=== PATIENT | female | born 1985 | race Caucasian/White ===

== ENCOUNTER → 2016-12-06 | Outpatient (CLI) | payer BC ==
[~2016-12-06] MED LIST: PRENTAB26 PO
[2016-12-06 12:42] LABS: BASO % 0.3 %; BASO ABS # 0.02 K/uL (0-0.2); COMPLETE YES; EOS % 2.1 %; HEMATOCRIT 40.8 % (37-47); IG% 0.3 %; LYMPH % 36.7 %; LYMPH ABS # 2.86 K/uL (1.2-3.4); MEAN CELL VOLUME 82.4 fL (80-100); MEAN CORPUSCULAR HEMOGLOBIN 28.1 pg (25-34); MEAN CORPUSCULAR HGB CONC 34.1 g/dl (32-36); MEAN PLATELET VOLUME 9.1 fL (7.4-10.4); MONO % 7.1 %; NEUT % 53.5 %; PLATELET COUNT 315 K/uL (130-400); RED BLOOD COUNT 4.95 M/uL (4.2-5.4)
[2016-12-06 12:58] LABS: ALB/GLOB RATIO 0.9 (0.9-2); ALKALINE PHOSPHATASE 50 U/L (45-117); ALT/SGPT 18 U/L (12-78); AST/SGOT 11 U/L (15-37); BLOOD UREA NITROGEN 10 mg/dl (7-18); BUN/CREATININE RATIO 10.8 (10-20); CALCIUM 9.4 mg/dl (8.5-10.1); CARBON DIOXIDE 25 mmol/L (21-32); CHLORIDE 110 mmol/L (98-107); CREATININE 0.89 mg/dl (0.60-1.20); GLUCOSE 120 mg/dl (70-99); POTASSIUM 4.1 mmol/L (3.5-5.1); SODIUM 142 mmol/L (136-145)
[2016-12-06 13:07] LABS: RHEUMATOID FACTOR < 10.0 U/mL (0-15)
[2016-12-06 13:21] LABS: LYME DISEASE AB IGG NEG (NEG)
[2016-12-06 13:24] LABS: LYME DISEASE AB IGM NEG (NEG)
== END | disposition home or self-care (01) ==
LOC: C.LABBFT 08:03
PROVIDERS: ATTEND Internal Medicine
DX: L50.9 Urticaria, unspecified (principal); M25.50 Pain in unspecified joint

== ENCOUNTER → 2017-08-17 | Outpatient (CLI) | payer BC | END | disposition home or self-care (01) | LOC: C.PAPS 12:06 | PROVIDERS: ATTEND Obstetrics & Gynecology | DX: Z01.419 Encounter for gynecological examination (general) (routine) without abnormal findings (principal) ==